=== PATIENT | female | born 1950 | race African-American/Black ===

== ENCOUNTER → 2019-10-23 | Outpatient (CLI) | payer MEDICARE ==
--- NOTE | 2019-10-23 12:53 | RAD ---
EXAM: CT Chest without IV contrast INDICATION: Reason: LUNG NODULE TECHNIQUE: Multi-detector row CT images were acquired from the thoracic inlet through the upper abdomen without the use of IV contrast. Sagittal and coronal images were acquired from the transaxial data. All CT scans performed at this facility utilize dose optimization techniques as appropriate to the exam, including the following: Automated exposure control and adjustment of the mA and/or KV according to patient size (this includes techniques or standardized protocols for targeted exams where dose is indication/reason for exam). COMPARISON: Report on an abdomen pelvis CT of 12/29/2008. Those images are not available(nor any other priors) FINDINGS: The absence of IV contrast limits evaluation of soft tissue pathology. CARDIOVASCULAR: Scattered atherosclerotic calcifications. MEDIASTINUM & ESTEFANÍA: No adenopathy or masses. LUNGS: Right lower lobe posterior basal segment 1.2 x 1.0 x 1.1 cm spiculated mixed solid and semisolid pulmonary nodule is present in the setting of mild centrilobular pattern emphysema affecting the right upper lobe to the greatest extent. Without IV contrast, the exact estimation of the solid component to this nodule is difficult as adjacent pulmonary vessels are a common finding fracture on noncontrast chest CT but the solid component measures approximately 6 mm on the coronal reformatted image 76 of series 5. There are additional radiographic areas of groundglass attenuation in the medial basal segment right lower lobe that are likely artifact of hypoventilation. These are best appreciated on axial image 41 of series 2, anteromedial to the aforementioned spiculated pulmonary nodule. PLEURAL SPACE: No pleural effusions or pneumothorax. OSSEOUS & SOFT TISSUE: Unremarkable ABDOMEN: The visualized portions of the upper abdomen are unremarkable. IMPRESSION: Right lower lobe 1.2 cm mixed solid and semisolid pulmonary nodule, suspicious for primary lung neoplasm with a possible 6 mm solid component. Recommend correlation with prior imaging and consider biopsy if a solid component 6 mm or greater is confirmed on contrast enhanced imaging, either from prior examinations or on close short-term follow-up from this exam (3-6 months). Electronically signed by: Shan Stanton MD (10/23/2019 12:51 PM) [id number]
== END | disposition home or self-care (01) ==
LOC: CT 11:22
PROVIDERS: ATTEND Internal Medicine Pulmonary Disease
DX: J43.2 Centrilobular emphysema (principal); R91.1 Solitary pulmonary nodule
CPT/HCPCS: 71250

== ENCOUNTER → 2019-12-07 | Outpatient (CLI) | payer MEDICARE, OTHER ==
--- NOTE | 2019-12-07 14:55 | KCIC ---
CERVICAL SPINE WO CONTRAST DATE: 12/07/2019 12:30 PM INDICATION: CERVICAL RADICULOPATHY. Posterior neck pain and headaches for about 6 mths. NKI. TECHNIQUE: Multiplanar multisequence magnetic resonance imaging of the cervical spine was performed without administration of intravenous contrast using the standard cervical spine protocol. COMPARISON: None. FINDINGS: Reversal of the cervical lordosis centered at C5. No acute fracture. Moderate multilevel degenerative disc desiccation and disc height loss. No marrow replacing process to suggest malignancy. The spinal cord is normal in signal intensity. On the limited views of the cranial cavity and brain, the cerebellum and jocelyn have normal morphology and signal characteristics. No Chiari malformation. No soft tissue abnormality. Normal signal voids are present in the vertebral arteries. C2-3: No significant spinal canal stenosis or neural foraminal narrowing. C3-4: Disc osteophyte complex. Uncovertebral hypertrophy. No spinal stenosis. Mild left neural foraminal narrowing. C4-5: Disc osteophyte complex. Uncovertebral hypertrophy. Moderate right and mild left neural foraminal narrowing. Mild spinal canal stenosis. C5-6: Disc osteophyte complex. Uncovertebral hypertrophy. Moderate to severe bilateral neural foraminal narrowing. Mild spinal canal stenosis. C6-7: Disc osteophyte complex. Uncovertebral hypertrophy. Moderate bilateral neural foraminal narrowing. Mild spinal canal stenosis. C7-T1: No significant spinal canal stenosis or neural foraminal narrowing. IMPRESSION: Moderate cervical spondylosis, detailed level by level above. Electronically signed by: Jass Galvez MD (12/07/2019 2:52 PM) [id number]
== END | disposition home or self-care (01) ==
LOC: KCIC MRI 12:23
PROVIDERS: ATTEND Anesthesiology
DX: M48.02 Spinal stenosis, cervical region (principal); M47.22 Other spondylosis with radiculopathy, cervical region; M40.50 Lordosis, unspecified, site unspecified; M25.78 Osteophyte, vertebrae
CPT/HCPCS: 72141